=== PATIENT | female | born 1930 | race Caucasian/White ===

== ENCOUNTER 2019-08-29 06:28 | Inpatient (IN) | payer OTHER, MEDICARE, BC ==
[2019-08-29] VITALS (10 sets, daily range): BP systolic 93–143
[~2019-08-29] VITALS: Ht 172.7 cm; Wt 68.9 kg
[2019-08-29] MEDS ORDERED: ALVIMOPAN 12 MG CAPSULE PO ONE ×2 (07:00→07:15)
[2019-08-29] MEDS ORDERED: cefOXitin SODIUM 2 GM in D5W 100 ML IV ONE (07:00)
[2019-08-29] MEDS ORDERED: AZAT50TA18 PO (08:56)
[2019-08-29] MEDS ORDERED: SSNOVOLOG SUBCUT (08:56)
[2019-08-29] MEDS ORDERED: INSU100V9 SQ (08:56)
[2019-08-29] MEDS ORDERED: CLOP75TA32 PO (08:56)
[2019-08-29] MEDS ORDERED: BUPIVACAINE LIPOSOME/PF 266 MG/20 ML VIAL INFIL ONE (09:05)
[2019-08-29] MEDS ORDERED: LR 1,000 ML IV.SOLN IV ONE (09:12)
[2019-08-29] MEDS ORDERED: PHENYLEPHRINE HCL 10 MG/ML VIAL (NEOSYNEPHRINE) IV ONE (09:12)
[2019-08-29] MEDS ORDERED: ONDANSETRON HCL 4 MG/2 ML VIAL IVP ONE (09:12)
[2019-08-29] MEDS ORDERED: ROCURONIUM BROMIDE 10 MG/ML (ZEMURON) IV ONE (09:12)
[2019-08-29] MEDS ORDERED: fentaNYL CITRATE/PF 100 MCG/2 ML AMP IVP ONE (09:12)
[2019-08-29] MEDS ORDERED: ISOFLURANE 15 MIN GAS INH ONE (09:12)
[2019-08-29] MEDS ORDERED: MIDAZOLAM HCL 5 MG/5 ML VIAL IVP ONE (09:12)
[2019-08-29] MEDS ORDERED: NS IRRIG SOLN 1000 ML IR ONE (09:12)
[2019-08-29] MEDS ORDERED: HEPARIN SODIUM,PORCINE/NS/PF 1,000 UNITS/500 ML BAG IV ONE (09:12)
[2019-08-29] MEDS ORDERED: PROPOFOL 200MG/ 20ML VIAL (DIPRIVAN) IV ONE (09:12)
[2019-08-29] MEDS ORDERED: ePHEDrine sulfate 50 MG/ML VIAL IVP ONE (09:12)
[2019-08-29] MEDS ORDERED: ONDANSETRON HCL 4 MG/2 ML VIAL IVP PRN ×2 (12:15→12:30)
[2019-08-29] MEDS ORDERED: ACETAMINOPHEN 325 MG TABLET PO PRN (12:15)
[2019-08-29] MEDS ORDERED: HYDROcodone/ACETAMIN 5-325 MG TAB (NORCO/ VICODIN) PO PRN (12:15)
[2019-08-29] MEDS ORDERED: LR 1,000 ML IV ONE (12:24)
[2019-08-29] MEDS ORDERED: HYDROmorphone 1 MG INJ. 1 MG/ML AMPUL IVP PRN (12:30)
[2019-08-29] MEDS ORDERED: MORPHINE 4 MG/ML INJ. SYRINGE IVP PRN (12:30)
[2019-08-29] MEDS ORDERED: HYDROmorphone 1 MG INJ. 1 MG/ML AMPUL ONE (12:50)
[2019-08-29 12:53] LABS: HEMATOCRIT 40.6 % (36-48); HEMOGLOBIN 13.3 g/dL (12.0-16.0)
[2019-08-29 13:03] LABS: ANION GAP 10 (5-15); CALCIUM 8.4 mg/dL (8.4-11.0); CHLORIDE 102 mmol/L (98-107); CREATININE 1.07 mg/dL (0.55-1.30); GLUCOSE 165 mg/dL (70-99); POTASSIUM 3.5 mmol/L (3.5-5.1); SODIUM SERUM 134 mmol/L (136-145); UREA NITROGEN, BLOOD 19 mg/dL (8-21)
[2019-08-29] MEDS: D5/0.45 NS 1,000 ML IV SCH (15:20)
[2019-08-29] MEDS: HYDROmorphone 1 MG INJ. 1 MG/ML AMPUL IVP PRN ×2 (15:23→18:35)
[2019-08-29] MEDS: ALVIMOPAN 12 MG CAPSULE PO SCH (21:00)
[2019-08-29] MEDS: cefOXitin SODIUM 2 GM in D5W 100 ML IV SCH (21:23)
[2019-08-29] MEDS: FAMOTIDINE PF 20 MG/2 ML VIAL IVP SCH (21:23)
[2019-08-30] VITALS (24 sets, daily range): BP systolic 95–135
[2019-08-30] MEDS: D5/0.45 NS 1,000 ML IV SCH ×3 (02:41→15:00)
[2019-08-30 06:02] LABS: BASOPHILS % (AUTO) 0.3 % (0.0-2.0); EOSINOPHILS % (AUTO) 0.5 % (0.0-4.0); HEMATOCRIT 36.5 % (36-48); HEMOGLOBIN 12.4 g/dL (12.0-16.0); LYMPHOCYTES # (AUTO) 0.2 K/uL (1.0-5.5); LYMPHOCYTES % (AUTO) 2.3 % (20.5-51.5); MEAN CORPUSCULAR HEMOGLOBIN 34 pg (27-31); MEAN CORPUSCULAR HGB CONC 34 % (32-36); MEAN CORPUSCULAR VOLUME 101 fL (79.0-98.0); MONOCYTES % (AUTO) 12.2 % (1.7-9.3); NEUTROPHILS # (AUTO) 6.9 K/uL (1.8-7.7); NEUTROPHILS % (AUTO) 84.7 % (40.0-70.0); RED CELL DISTRIBUTION WIDTH 14.5 % (9.0-15.0); WHITE BLOOD COUNT (AUTO) 8.2 K/uL (4.8-10.8)
[2019-08-30 07:48] LABS: ALANINE AMINOTRANSFERASE 16 U/L (12-78); ALBUMIN 2.6 g/dL (3.4-4.8); ANION GAP 11 (5-15); ASPARTATE AMINOTRANSFERASE 14 U/L (10-37); CALCIUM 8.5 mg/dL (8.4-11.0); CHLORIDE 102 mmol/L (98-107); CREATININE 1.07 mg/dL (0.55-1.30); GLUCOSE 221 mg/dL (70-99); POTASSIUM 4.3 mmol/L (3.5-5.1); SODIUM SERUM 133 mmol/L (136-145); TOTAL BILIRUBIN 0.6 mg/dL (0.0-1.0); UREA NITROGEN, BLOOD 22 mg/dL (8-21)
[2019-08-30] MEDS: ALVIMOPAN 12 MG CAPSULE PO SCH ×2 (08:29→22:01)
[2019-08-30] MEDS: FAMOTIDINE PF 20 MG/2 ML VIAL IVP SCH ×2 (08:29→22:01)
[2019-08-30] MEDS: cefOXitin SODIUM 2 GM in D5W 100 ML IV SCH (08:29)
[2019-08-30] MEDS: ENOXAPARIN SODIUM 30 MG/0.3 ML SYRINGE SUBCUT SCH (08:31)
[2019-08-30 08:33] LABS: PLATELET COUNT (AUTO) 164 K/uL (130-430)
[2019-08-30] MEDS: HYDROmorphone 1 MG INJ. 1 MG/ML AMPUL IVP PRN ×3 (10:59→20:40)
[2019-08-30] MEDS ORDERED: DEXTROSE 50% JECT 50 ML DISP.SYRIN IVP PRN (18:15)
[2019-08-30] MEDS ORDERED: MENTHOL/ZINC OXIDE 113 GM OINT. TP PRN (18:30)
[2019-08-30] MEDS: BALSAM PERU/CASTOR OIL 60 GM OINT...G. TP SCH (18:56)
[2019-08-30] MEDS: INSULIN REGULAR, HUMAN 100 UNITS/ML, 10 ML VIAL (humuLIN R) SUBCUT PRN (19:04)
[2019-08-31] VITALS (11 sets, daily range): BP systolic 61–137
[2019-08-31] MEDS: INSULIN REGULAR, HUMAN 100 UNITS/ML, 10 ML VIAL (humuLIN R) SUBCUT PRN ×2 (00:34→07:00)
[2019-08-31] MEDS: D5/0.45 NS 1,000 ML IV SCH ×3 (00:52→22:28)
[2019-08-31] MEDS: HYDROmorphone 1 MG INJ. 1 MG/ML AMPUL IVP PRN ×4 (01:37→18:17)
[2019-08-31] MEDS: FAMOTIDINE PF 20 MG/2 ML VIAL IVP SCH ×2 (08:29→20:27)
[2019-08-31] MEDS: ENOXAPARIN SODIUM 30 MG/0.3 ML SYRINGE SUBCUT SCH (08:30)
[2019-08-31] MEDS: BALSAM PERU/CASTOR OIL 60 GM OINT...G. TP SCH (08:30)
[2019-08-31] MEDS: ALVIMOPAN 12 MG CAPSULE PO SCH ×2 (08:30→20:26)
[2019-08-31] MEDS: HYDROcodone/ACETAMIN 5-325 MG TAB (NORCO/ VICODIN) PO PRN (09:09)
[2019-09-01] MEDS: INSULIN REGULAR, HUMAN 100 UNITS/ML, 10 ML VIAL (humuLIN R) SUBCUT PRN (00:39)
[2019-09-01 03:39] VITALS: BP_SYST 103
[2019-09-01] MEDS: HYDROmorphone 1 MG INJ. 1 MG/ML AMPUL IVP PRN (04:46)
[2019-09-01] MEDS: FAMOTIDINE PF 20 MG/2 ML VIAL IVP SCH ×2 (09:24→22:18)
[2019-09-01] MEDS: ENOXAPARIN SODIUM 30 MG/0.3 ML SYRINGE SUBCUT SCH (09:26)
[2019-09-01] MEDS: CLOTRIMAZOLE/BETAMET DIPROP 15 GM TUBE TP SCH ×2 (09:26→22:20)
[2019-09-01] MEDS: BALSAM PERU/CASTOR OIL 60 GM OINT...G. TP SCH (09:27)
[2019-09-01] MEDS: D5/0.45 NS 1,000 ML IV SCH ×2 (09:38→19:20)
[2019-09-01] MEDS: ALVIMOPAN 12 MG CAPSULE PO SCH ×2 (09:53→22:17)
[2019-09-01 12:39] VITALS: BP_SYST 101
[2019-09-01 17:35] VITALS: BP_SYST 102
[2019-09-01 20:00] VITALS: BP_SYST 129
[2019-09-02] MEDS: INSULIN REGULAR, HUMAN 100 UNITS/ML, 10 ML VIAL (humuLIN R) SUBCUT PRN (00:03)
[2019-09-02 03:41] VITALS: BP_SYST 134
[2019-09-02] MEDS: D5/0.45 NS 1,000 ML IV SCH (05:12)
[2019-09-02 08:00] VITALS: BP_SYST 125
[2019-09-02] MEDS: ALVIMOPAN 12 MG CAPSULE PO SCH (09:30)
[2019-09-02] MEDS: FAMOTIDINE PF 20 MG/2 ML VIAL IVP SCH (09:30)
[2019-09-02] MEDS: ENOXAPARIN SODIUM 30 MG/0.3 ML SYRINGE SUBCUT SCH (09:31)
[2019-09-02] MEDS: BALSAM PERU/CASTOR OIL 60 GM OINT...G. TP SCH (09:32)
[2019-09-02] MEDS: CLOTRIMAZOLE/BETAMET DIPROP 15 GM TUBE TP SCH (09:32)
[2019-09-02] MEDS: HYDROcodone/ACETAMIN 5-325 MG TAB (NORCO/ VICODIN) PO PRN (09:34)
[2019-09-02 14:47] VITALS: BP_SYST 120
== END 2019-09-02 15:50 | DRG 329 ==
LOC: SMU 06:28 → SIC 14:51 → SMU 08-31 18:35
PROVIDERS: ADMIT Colon & Rectal Surgery; ATTEND Colon & Rectal Surgery
PROC: 0D1M4Z4 Bypass Descending Colon to Cutaneous, Percutaneous Endoscopic Approach (ICD-10-PCS; 2019-08-29)
PROC: 0DBM4ZZ Excision of Descending Colon, Percutaneous Endoscopic Approach (ICD-10-PCS; principal; 2019-08-29 08:50)
DX: R15.9 Full incontinence of feces (principal); E43 Unspecified severe protein-calorie malnutrition; G61.81 Chronic inflammatory demyelinating polyneuritis; M10.9 Gout, unspecified; F32.9 Major depressive disorder, single episode, unspecified; E11.9 Type 2 diabetes mellitus without complications; M19.90 Unspecified osteoarthritis, unspecified site; L98.499 Non-pressure chronic ulcer of skin of other sites with unspecified severity; I10 Essential (primary) hypertension; Z92.3 Personal history of irradiation; Z90.710 Acquired absence of both cervix and uterus; Z86.73 Personal history of transient ischemic attack (TIA), and cerebral infarction without residual deficits; Z85.42 Personal history of malignant neoplasm of other parts of uterus
CPT/HCPCS: 36415; 71045; 80048; 80053; 82948; 82962; 85018-TC; 85025; 87081; C1727; C1751; C9290; J0694; J1170; J1644; J1650; J1815; J2250; J2270; J2370; J2405; J2704; J3010; J3490; J7060; J7120